=== PATIENT | male | born 1955 | race Caucasian/White ===

== ENCOUNTER 2019-06-04 21:11 | Emergency (ER) | payer MEDICAID ==
[~2019-06-04] VITALS: Ht 177.8 cm; Wt 80.0 kg
[2019-06-04 22:30] VITALS: BP 119/80
--- NOTE | 2019-06-05 03:48 | NUR ---
PT SLEEPING SOUNDLY FOR ENTIRE STAY, ROUSABLE TO VOICE, NO COMPLAINTS
--- NOTE | 2019-06-05 05:40 | NUR ---
ROUSED PT, PT ALERT AND ORIENTED, GETTING READY TO LEAVE
== END 2019-06-05 06:17 | disposition home or self-care (01) ==
LOC: ED 22:42
DX: S09.90XA Unspecified injury of head, initial encounter (principal); F10.120 Alcohol abuse with intoxication, uncomplicated; Z87.891 Personal history of nicotine dependence; Y90.0 Blood alcohol level of less than 20 mg/100 ml; X58.XXXA Exposure to other specified factors, initial encounter; Y93.89 Activity, other specified; Y92.89 Other specified places as the place of occurrence of the external cause; Y99.8 Other external cause status
CPT/HCPCS: 70450; 72125; 99284

== ENCOUNTER 2020-03-29 22:32 | Emergency (ER) | payer MEDICAID ==
[~2020-03-29] VITALS: Ht 182.9 cm; Wt 90.0 kg
--- NOTE | 2020-03-29 22:50 | NUR ---
This is a 64 y/o male arriving from [facility] after REGINA joya called an ambulance for him. Pt reports he was walking and minding his own business when he suddenly lost his feet under him and landed on his back and then his sciatica flared up!. Pt has etoh smell and reports having drank a few beers today. Pt denies any other trauma. Pt has gross neuro intact and is able to move all extremities well. Pt has no bruising and is breathing unlabored. Pt connected to spo2 monitor and NIpb. Pt is close to nurses station for close monitoring. Pt report to Josette PATIÑO. Pt etoh status informed to gas charger and made aware of fall risk.
[2020-03-30 02:15] VITALS: BP 128/77
--- NOTE | 2020-03-30 02:30 | NUR ---
Pt DCed at this time, escorted out of room and off unti by security as pt became aggressive and shouting
== END 2020-03-30 04:42 | disposition home or self-care (01) ==
LOC: ED 03-30 01:48
DX: G89.11 Acute pain due to trauma (principal); M54.5 Low back pain; F10.120 Alcohol abuse with intoxication, uncomplicated; Z87.891 Personal history of nicotine dependence; W01.0XXA Fall on same level from slipping, tripping and stumbling without subsequent striking against object, initial encounter; Y93.89 Activity, other specified; Y92.89 Other specified places as the place of occurrence of the external cause; Y99.8 Other external cause status; Y90.0 Blood alcohol level of less than 20 mg/100 ml
CPT/HCPCS: 70450; 72125; 72131; 99285

== ENCOUNTER 2020-08-18 18:15 | Emergency (ER) | payer MEDICAID ==
[~2020-08-18] VITALS: Ht 185.4 cm; Wt 100.0 kg
--- NOTE | 2020-08-18 18:22 | NUR ---
BIB [facility] FOR +ETOH AND UNABLE TO AMBULATE. [facility]: [facility] 132 PT SLURRING WORDS AND UNABLE TO UNDERSTAND. PT KEEPS SAYING "I LOVE YOU". PT REFUSED BP CUFF. PULSE OX APPLIED. PT YELLING OUT FOR UNKNOWN REASONS. WHEN PT CALMED DOWN AND STARTED SLEEPING OXYGEN DROPPED TO 75% RA. OXYGEN PLACED VIA NC WITH POSITIVE RESULTS.
--- NOTE | 2020-08-18 18:28 | NUR ---
PROVIDER AT BEDSIDE FOR ASSESSMENT. PT TO BE RECHECKED WHEN MORE SOBER.
--- NOTE | 2020-08-18 20:03 | NUR ---
PT SLEEPING ON GURNEY. RESP EVEN AND UNLABORED. CONNECTED TO PULSE OX AND OXYGEN.
--- NOTE | 2020-08-18 21:13 | NUR ---
PT SLEEPING ON GURNEY. RESP EVEN AND UNLABORED. CONNECTED TO PULSE OX AND OXYGEN.
--- NOTE | 2020-08-18 22:00 | NUR ---
PT SLEEPING ON GURNEY. RESP EVEN AND UNLABORED. CONNECTED TO PULSE OX AND OXYGEN.
--- NOTE | 2020-08-18 22:08 | NUR ---
TASK RN: ATTEMPTED TO AMBULATED PT, PT UNABLE TO DO SO AT THIS TIME WITH A STEADY GAIT, ASSISTED BACK TO [facility], PROVIDED SNACKS AND JUICE. DENIES ADDITIONAL NEEDS, BED IN LOWEST, RAILS ENGAGED, CALL LIGHT ON LAP, LIGHTS DIMMED FOR COMFORT.
--- NOTE | 2020-08-18 22:59 | NUR ---
REPORT RECIEVED FROM CHRISTINE PATIÑO
--- NOTE | 2020-08-18 23:08 | NUR ---
PT SLEEPING, RESP EVEN AND UNLABORED. NO NEEDS AT THIS TIME
--- NOTE | 2020-08-19 00:05 | NUR ---
PT RESTING ON GURNEY, NAD, APPEARS COMFORTABLE, NO CHANGE IN CONDITION. BED IN LOWEST, RAILS ENGAGED, CALL LIGHT ON LAP, WCTM. MTF
[2020-08-19 00:38] VITALS: BP 102/68
--- NOTE | 2020-08-19 00:38 | NUR ---
PT WAKES UP EASILY, ABLE TO WALK AROUND WITH STEADY GAIT.
== END 2020-08-19 01:08 | disposition home or self-care (01) ==
LOC: ED 08-19 00:43
DX: F10.220 Alcohol dependence with intoxication, uncomplicated (principal); Z72.9 Problem related to lifestyle, unspecified; Z87.891 Personal history of nicotine dependence; Y90.0 Blood alcohol level of less than 20 mg/100 ml
CPT/HCPCS: 99283

== ENCOUNTER 2020-11-06 04:36 | Emergency (ER) | payer MEDICAID ==
[~2020-11-06] VITALS: Ht 177.8 cm; Wt 78.0 kg
[2020-11-06 04:51] VITALS: BP 148/88
--- NOTE | 2020-11-06 04:55 | NUR ---
PT BIB [facility], AND PLACED IN ROOM 13. PT ON O2 SAT MONITOR, AND BP CUFF. PT GIVEN WARM BLANKETS AND TOLD TO REST. HIS EYES ARE IRRITATED BUT NO MORE TEARS NOTED, AND PT HAD EYES FLUSHED HEAVILY BY THE EMS CREW. TO SEE PT.
--- NOTE | 2020-11-06 05:45 | NUR ---
With reassessment patient resting comfortably on gurney vss on 2l nc Even/unlabored chest rise noted
--- NOTE | 2020-11-06 06:36 | NUR ---
With reassessment patient now alert/oriented Po challenged without difficulty Reviewed poc (discharge) Patient disagrees. I need to stay I have nowhere to go- escorted out by security/rpd
== END 2020-11-06 06:50 | disposition home or self-care (01) ==
LOC: ED 05:13
DX: F10.129 Alcohol abuse with intoxication, unspecified (principal); Y90.0 Blood alcohol level of less than 20 mg/100 ml
CPT/HCPCS: 99283

== ENCOUNTER 2020-11-11 09:00 | Inpatient (IN) | payer MEDICAID ==
[~2020-11-11] VITALS: Ht 177.8 cm; Wt 100.1 kg
[2020-11-11] MEDS ORDERED: ZIPRASIDONE 20 MG INJ IM ONE ×2 (09:11→09:30)
--- NOTE | 2020-11-11 09:23 | NUR ---
ana lilia from [facility] after being found with ams and agiation. pt was last seen normal last night where is was aaox4. pt was given librium before bed last night. hx of etoh drinks 1/2 gallon per day. pt agiated with arrival refusing vitals to be taken and assessment. pt observed to have full strength in all extremities. pt not following commands or answering questions. attached to all monitors. vss. nadn. pt asleep. x1 emesis observed. dr. merida to bedside for evaluation. pt medicated per emar for agiation.
[2020-11-11] MEDS ORDERED: ONDANSETRON 2MG/ML, 2ML ONE (09:44)
[2020-11-11] MEDS ORDERED: FAMOTIDINE 20 MG/2 ML ONE (09:46)
--- NOTE | 2020-11-11 10:05 | NUR ---
PT ASLEEP WITH EVEN AND UNLABORED RESPIRATRIONS. VSS. VILLALOBOS.
--- NOTE | 2020-11-11 10:06 | NUR ---
PT TO CT.
--- NOTE | 2020-11-11 10:41 | NUR ---
pt asleep with even and unlabored respirations. nadn. vss.
[2020-11-11 10:50] LABS: MEAN CORPUSCULAR HGB CONC 32.8 g/dL (33.2-36.2); MEAN PLATELET VOLUME 8.9 fL (7.4-10.4); PLATELET COUNT 302 x10^3/uL (130-400); RED BLOOD COUNT 3.66 x10^6/uL (4.38-5.82); RED CELL DISTRIBUTION WIDTH 17.5 % (9.4-14.8)
[2020-11-11 11:01] LABS: ALANINE AMINOTRANSFERASE 22 U/L (12-78); ALBUMIN 3.2 g/dL (3.4-5.0); ANION GAP 6 mmol/L (5-15); CALCIUM 8.7 mg/dL (8.5-10.1); CHLORIDE 104 mmol/L (98-107); SALICYLATE LEVEL 2.5 mg/dL (2.8-20.0)
--- NOTE | 2020-11-11 11:07 | NUR ---
pt asleep with even and unlabored respirations. nadn. vss.
[2020-11-11 11:11] LABS: ALKALINE PHOSPHATASE 92 U/L (45-117); BAND#(MANUAL) 3.74 x10^3/uL; BANDS%(MANUAL) 17 % (0-7); BASOS#(MANUAL) 0.22 x10^3/uL (0-0.1); BASOS% (MANUAL) 1 % (0-1); BILIRUBIN,TOTAL 0.7 mg/dL (0.2-1.0); LYMPH#(MANUAL) 0.66 x10^3/uL (1-3.4); LYMPHS% (MANUAL) 3 % (22-44); METAMYELOCYTES# (MANUAL) 0.44 x10^3/uL (0-0); METAMYELOCYTES% (MANUAL) 2 % (0-1); MONOS% (MANUAL) 5 % (2-9); SEG#(MANUAL) 15.84 x10^3/uL (1.8-6.8); SEGS% (MANUAL) 72 % (42-75); TOTAL PROTEIN 8.2 g/dL (6.4-8.2)
[2020-11-11 11:12] LABS: <PLATELET ESTIMATE> ADEQUATE; <PLT MORPHOLOGY> NORMAL PLT MORPH; ANISOCYTOSIS 1+
[2020-11-11 11:31] LABS: FREE T4 (FREE THYROXINE) 0.89 ng/dL (0.76-1.46)
[2020-11-11 11:54] LABS: MICROSCOPIC NOT IND
[2020-11-11 12:10] LABS: AMPHETAMINE SCREEN, URINE Negative (Negative); BARBITURATE SCREEN, URINE Negative (Negative); BENZODIAZEPINE SCREEN, URINE Positive (Negative); CANNABINOID SCREEN, URINE Positive (Negative); COCAINE SCREEN, URINE Negative (Negative); METHADONE SCREEN, URINE Negative (Negative); OPIATE SCREEN, URINE Negative (Negative)
[2020-11-11] MEDS ORDERED: MIDAZOLAM 1 MG/ML, 2ML ONE (12:20)
[2020-11-11] MEDS ORDERED: LIDOCAINE-MPF 1%, 5ML ONE ×2 (12:20)
[2020-11-11] MEDS ORDERED: LIDOCAINE 1%, 10ML INFIL ONE (12:30)
[2020-11-11] MEDS ORDERED: CEFTRIAXONE 2 GM in DEXTROSE 5% 50 ML IVPB ONE (12:30)
[2020-11-11] MEDS ORDERED: MIDAZOLAM 1 MG/ML, 2ML IVPush PRN (12:30)
--- NOTE | 2020-11-11 12:42 | NUR ---
pt medicated per emar for bedside lp. lp preformed by dr. merida. ian. halima. sample walked down. pt asleep with even and unlabored respirations.
--- NOTE | 2020-11-11 13:10 | NUR ---
RN SPOKE WITH DR. SHEPARD REGARDING SEPSIS CRITRIA AND A BOLUS. PER DR. SHEPARD PT DOES NOT REQUIRE IV BOLUS.
[2020-11-11 13:27] LABS: TOTAL PROTEIN,CSF 626 mg/dL (15-45)
[2020-11-11] MEDS ORDERED: [UNRECOGNIZED DRUG - REMARK] MC SCH (13:30)
[2020-11-11] MEDS ORDERED: SODIUM CHLORIDE 0.9% 1,000ML IVBOLUS ONE (13:30)
[2020-11-11] MEDS ORDERED: VANCOMYCIN PER PHARMACY MC ONE (13:30)
[2020-11-11] MEDS ORDERED: SODIUM CHLORIDE 0.9% 1,000ML IVBOLUS PRN (13:30)
[2020-11-11 13:31] LABS: GLUCOSE, CSF < 1 mg/dL (40-80)
[2020-11-11] MEDS ORDERED: PHARMACOKINETIC MONITORING MC ONE (14:00)
[2020-11-11] MEDS ORDERED: VANCOMYCIN 2,000 MG in SODIUM CHLORIDE 0.9% 500 ML IV ONE (14:00)
[2020-11-11] MEDS ORDERED: PLEASE ENTER MEASURED WEIGHT MC SCH (14:00)
[2020-11-11] MEDS ORDERED: SODIUM CHLORIDE 0.9% 1,000ML IV ONE (14:00)
[2020-11-11] MEDS ORDERED: PHARMACOKINETIC CONSULTATION MC ONE ×2 (14:00→15:30)
--- NOTE | 2020-11-11 14:09 | NUR ---
REPORT CALLED TO SHANNON PATIÑO. PT ASLEEP WITH EVEN AND UNLABORED RESPRIATIONS. VSS. VILLALOBOS.
--- NOTE | 2020-11-11 14:13 | NUR ---
THIS RN REQUEST EMMANUEL FROM PHARMACY.
--- NOTE | 2020-11-11 14:20 | NUR ---
POSTIVE BLOOD CULTURES REPORTED TO DR. ANNE.
[2020-11-11 14:38] VITALS: BP 138/79
[2020-11-11] MEDS ORDERED: LORazepam 2 MG/ML, 1ML IV PRN ×3 (15:00)
[2020-11-11] MEDS ORDERED: ONDANSETRON 2MG/ML, 2ML IVPush PRN (15:00)
[2020-11-11] MEDS ORDERED: POLYETHYLENE GLYCOL 17 GM PACKET PO PRN (15:00)
[2020-11-11] MEDS ORDERED: LORazepam 0.5MG TABLET PO PRN (15:00)
[2020-11-11] MEDS ORDERED: VANCOMYCIN PER PHARMACY MC PRN (15:00)
[2020-11-11] MEDS ORDERED: hydrALAzine 20 MG/ML, 1ML IVPush PRN (15:00)
[2020-11-11] MEDS ORDERED: DOCUSATE 100 MG CAPSULE PO PRN (15:00)
[2020-11-11] MEDS ORDERED: PROMETHAZINE 25 MG/ML, 1ML IM PRN (15:00)
[2020-11-11] MEDS ORDERED: LORazepam 1MG TABLET PO PRN ×4 (15:00)
[2020-11-11] MEDS ORDERED: KETOROLAC 30 MG/1 ML IV PRN (15:00)
[2020-11-11] MEDS ORDERED: ONDANSETRON ODT 4 MG PO PRN (15:00)
[2020-11-11] MEDS ORDERED: BISACODYL 10 MG SUPP PR PRN (15:00)
[2020-11-11] MEDS ORDERED: PHARMACOKINETIC MONITORING MC PRN (15:30)
[2020-11-11] MEDS: ENOXAPARIN 40 MG/0.4 ML SQ SCH (17:13)
[2020-11-11 18:43] VITALS: BP 142/87
[2020-11-11] MEDS: LORazepam 2 MG/ML, 1ML IV PRN (22:18)
[2020-11-11] MEDS: D5%-0.9% NACL 1,000 ML IV SCH (23:15)
[2020-11-11] MEDS: CEFTRIAXONE 2 GM in DEXTROSE 5% 50 ML IVPB SCH (23:26)
[2020-11-12 01:15] VITALS: BP 124/79
[2020-11-12] MEDS: LORazepam 2 MG/ML, 1ML IV PRN ×3 (02:00→06:30)
[2020-11-12] MEDS: VANCOMYCIN 1,600 MG in SODIUM CHLORIDE 0.9% 250 ML IV SCH ×2 (02:51→14:58)
[2020-11-12 05:27] LABS: ALBUMIN 2.5 g/dL (3.4-5.0); CALCIUM 8.3 mg/dL (8.5-10.1); CHLORIDE 107 mmol/L (98-107); MEAN CORPUSCULAR HEMOGLOBIN 29.8 pg (27.5-34.5); MEAN CORPUSCULAR HGB CONC 32.7 g/dL (33.2-36.2); MEAN PLATELET VOLUME 9.6 fL (7.4-10.4); PLATELET COUNT 233 x10^3/uL (130-400); RED BLOOD COUNT 3.23 x10^6/uL (4.38-5.82); RED CELL DISTRIBUTION WIDTH 17.7 % (9.4-14.8)
[2020-11-12 05:35] LABS: ALANINE AMINOTRANSFERASE 19 U/L (12-78); ALKALINE PHOSPHATASE 74 U/L (45-117); ANION GAP 8 mmol/L (5-15); BILIRUBIN,TOTAL 0.4 mg/dL (0.2-1.0); CHOLESTEROL, TOTAL 117 mg/dL (140-239); CREATININE 0.88 mg/dL (0.7-1.3); HDL CHOL % 33 % (26-37); HDL CHOLESTEROL (DIRECT) 39 mg/dL (40-60); LDL CHOLESTEROL,CALCULATED 55 mg/dL (54-169); LDL/HDL RATIO 1.4 (0.5-3.0); TOTAL PROTEIN 7.2 g/dL (6.4-8.2); TRIGLYCERIDES 116 mg/dL (50-200); VLDL CHOLESTEROL 23 mg/dL (0-25)
[2020-11-12 05:58] LABS: BAND#(MANUAL) 5.13 x10^3/uL; BANDS%(MANUAL) 18 % (0-7); METAMYELOCYTES# (MANUAL) 0.57 x10^3/uL (0-0); METAMYELOCYTES% (MANUAL) 2 % (0-1); MONOS#(MANUAL) 0.86 x10^3/uL (0.3-2.7); MONOS% (MANUAL) 3 % (2-9)
[2020-11-12 05:59] LABS: ANISOCYTOSIS 1+; LYMPH#(MANUAL) 0.57 x10^3/uL (1-3.4); LYMPHS% (MANUAL) 2 % (22-44); SEGS% (MANUAL) 75 % (42-75)
[2020-11-12 06:00] LABS: <PLATELET ESTIMATE> ADEQUATE; LARGE PLATELETS 1+
[2020-11-12 07:30] VITALS: BP 124/78
[2020-11-12] MEDS: D5%-0.9% NACL 1,000 ML IV SCH (07:49)
[2020-11-12] MEDS: SODIUM CHLORIDE 0.9% 1,000 ML IV SCH ×2 (08:00→21:05)
[2020-11-12] MEDS ORDERED: THIAMINE 100 MG in SODIUM CHLORIDE 0.9% 50 ML IV SCH (09:00)
[2020-11-12] MEDS ORDERED: MAGNESIUM SULFATE 1 GM, THIAMINE 200 MG, FOLIC ACID 1 MG, MVI ADULT 10 ML in SODIUM CHL... IV SCH (09:30)
[2020-11-12] MEDS ORDERED: CEFTRIAXONE 2 GM in DEXTROSE 5% 50 ML IVPB SCH (12:00)
[2020-11-12] MEDS: CEFTRIAXONE 2 GM in DEXTROSE 5% 50 ML IVPB SCH (12:54)
[2020-11-12 14:16] VITALS: BP 123/86
[2020-11-12] MEDS: ENOXAPARIN 40 MG/0.4 ML SQ SCH (17:48)
[2020-11-12 20:25] VITALS: BP 136/87
[2020-11-13 00:26] VITALS: BP 108/71
[2020-11-13] MEDS: CEFTRIAXONE 2 GM in DEXTROSE 5% 50 ML IVPB SCH ×2 (00:54→12:55)
[2020-11-13 02:40] LABS: MEAN CORPUSCULAR HEMOGLOBIN 29.7 pg (27.5-34.5); MEAN CORPUSCULAR HGB CONC 32.4 g/dL (33.2-36.2); MEAN PLATELET VOLUME 8.8 fL (7.4-10.4); PLATELET COUNT 246 x10^3/uL (130-400); RED BLOOD COUNT 3.28 x10^6/uL (4.38-5.82); RED CELL DISTRIBUTION WIDTH 17.3 % (9.4-14.8)
[2020-11-13] MEDS: VANCOMYCIN 1,600 MG in SODIUM CHLORIDE 0.9% 250 ML IV SCH (02:42)
[2020-11-13 02:49] LABS: ALANINE AMINOTRANSFERASE 17 U/L (12-78); ALBUMIN 2.2 g/dL (3.4-5.0); ANION GAP 7 mmol/L (5-15); CALCIUM 8.3 mg/dL (8.5-10.1); CHLORIDE 114 mmol/L (98-107); CREATININE 0.64 mg/dL (0.7-1.3)
[2020-11-13 02:51] LABS: ALKALINE PHOSPHATASE 66 U/L (45-117); BILIRUBIN,TOTAL 0.3 mg/dL (0.2-1.0); TOTAL PROTEIN 6.9 g/dL (6.4-8.2)
[2020-11-13 02:59] LABS: <PLATELET ESTIMATE> ADEQUATE; ANISOCYTOSIS 1+; BAND#(MANUAL) 2.59 x10^3/uL; BANDS%(MANUAL) 10 % (0-7); LARGE PLATELETS 1+; LYMPH#(MANUAL) 0.26 x10^3/uL (1-3.4); LYMPHS% (MANUAL) 1 % (22-44); MONOS#(MANUAL) 1.04 x10^3/uL (0.3-2.7); MONOS% (MANUAL) 4 % (2-9); POLYCHROMASIA 1+; SEG#(MANUAL) 22.02 x10^3/uL (1.8-6.8); SEGS% (MANUAL) 85 % (42-75)
[2020-11-13] MEDS: SODIUM CHLORIDE 0.9% 1,000 ML IV SCH (06:06)
[2020-11-13 07:44] VITALS: BP 154/89
[2020-11-13] MEDS ORDERED: POTASSIUM CHLORIDE 20 MEQ, MAGNESIUM SULFATE 1 GM, MVI ADULT 10 ML, THIAMINE 200 MG, FO... IV SCH (08:30)
[2020-11-13] MEDS: VANCOMYCIN 1,300 MG in SODIUM CHLORIDE 0.9% 250 ML IV SCH ×2 (09:34→18:24)
[2020-11-13] MEDS: LORazepam 2 MG/ML, 1ML IV PRN ×4 (11:17→20:55)
[2020-11-13 13:50] VITALS: BP 148/63
[2020-11-13] MEDS: ENOXAPARIN 40 MG/0.4 ML SQ SCH (18:23)
[2020-11-13 20:00] VITALS: BP 149/89
[2020-11-14] MEDS: CEFTRIAXONE 2 GM in DEXTROSE 5% 50 ML IVPB SCH ×2 (00:26→12:25)
[2020-11-14] MEDS: LORazepam 2 MG/ML, 1ML IV PRN ×2 (00:50→07:23)
[2020-11-14 00:51] VITALS: BP 138/70
[2020-11-14] MEDS ORDERED: LORazepam 2 MG/ML, 1ML IVPush ONE (01:30)
[2020-11-14] MEDS: VANCOMYCIN 1,300 MG in SODIUM CHLORIDE 0.9% 250 ML IV SCH (01:49)
[2020-11-14 04:19] VITALS: BP 134/88
[2020-11-14 05:38] LABS: BASOPHILS % (AUTO) 0 % (0-1); EOSINOPHILS % (AUTO) 0 % (1-7); LYMPHOCYTES % (AUTO) 9 % (22-44); MEAN CORPUSCULAR HEMOGLOBIN 29.7 pg (27.5-34.5); MEAN CORPUSCULAR HGB CONC 32.9 g/dL (33.2-36.2); MONOCYTES % (AUTO) 7 % (2-9); NEUTROPHILS % (AUTO) 84 % (42-75); PLATELET COUNT 282 x10^3/uL (130-400); RED BLOOD COUNT 3.34 x10^6/uL (4.38-5.82); RED CELL DISTRIBUTION WIDTH 17.6 % (9.4-14.8)
[2020-11-14 05:49] LABS: ANION GAP 11 mmol/L (5-15); CALCIUM 8.3 mg/dL (8.5-10.1); CHLORIDE 113 mmol/L (98-107); CREATININE 0.66 mg/dL (0.7-1.3)
[2020-11-14 08:48] VITALS: BP 162/95
[2020-11-14] MEDS: MVI ADULT IV SCH (09:30)
[2020-11-14] MEDS: POTASSIUM CHLORIDE IV SCH (09:30)
[2020-11-14] MEDS: THIAMINE IV SCH (09:30)
[2020-11-14] MEDS: MAGNESIUM SULFATE IV SCH (09:30)
[2020-11-14] MEDS: [UNRECOGNIZED DRUG - OTHER] IV SCH (09:30)
[2020-11-14 12:06] VITALS: BP 134/78
[2020-11-14] MEDS: ENOXAPARIN 40 MG/0.4 ML SQ SCH (17:00)
[2020-11-14 18:50] VITALS: BP 155/84
[2020-11-15] MEDS: CEFTRIAXONE 2 GM in DEXTROSE 5% 50 ML IVPB SCH ×2 (00:17→13:00)
[2020-11-15] MEDS: LORazepam 2 MG/ML, 1ML IV PRN (00:17)
[2020-11-15 01:14] VITALS: BP 149/89
[2020-11-15 06:01] LABS: BASOPHILS % (AUTO) 1 % (0-1); EOSINOPHILS % (AUTO) 0 % (1-7); LYMPHOCYTES % (AUTO) 21 % (22-44); MEAN CORPUSCULAR HGB CONC 33.3 g/dL (33.2-36.2); MEAN PLATELET VOLUME 8.5 fL (7.4-10.4); MONOCYTES % (AUTO) 13 % (2-9); NEUTROPHILS % (AUTO) 64 % (42-75); PLATELET COUNT 308 x10^3/uL (130-400); RED BLOOD COUNT 3.36 x10^6/uL (4.38-5.82)
[2020-11-15 06:11] LABS: ANION GAP 9 mmol/L (5-15); CALCIUM 8.3 mg/dL (8.5-10.1); CHLORIDE 111 mmol/L (98-107); CREATININE 0.55 mg/dL (0.7-1.3)
[2020-11-15 06:15] VITALS: BP 175/90
[2020-11-15] MEDS: MVI ADULT IV SCH ×2 (10:01→21:30)
[2020-11-15] MEDS: [UNRECOGNIZED DRUG - OTHER] IV SCH ×2 (10:01→21:30)
[2020-11-15] MEDS: THIAMINE IV SCH ×2 (10:01→21:30)
[2020-11-15] MEDS: POTASSIUM CHLORIDE IV SCH ×2 (10:01→21:30)
[2020-11-15] MEDS: MAGNESIUM SULFATE IV SCH ×2 (10:01→21:30)
[2020-11-15 13:27] VITALS: BP 165/91
[2020-11-15] MEDS: ENOXAPARIN 40 MG/0.4 ML SQ SCH (16:46)
[2020-11-15 18:33] VITALS: BP 158/87
[2020-11-16 00:10] VITALS: BP 144/83
[2020-11-16] MEDS: CEFTRIAXONE 2 GM in DEXTROSE 5% 50 ML IVPB SCH ×2 (00:26→12:38)
[2020-11-16 08:05] VITALS: BP 146/81
[2020-11-16 08:47] LABS: ANION GAP 11 mmol/L (5-15); CALCIUM 8.4 mg/dL (8.5-10.1); CHLORIDE 110 mmol/L (98-107); CREATININE 0.53 mg/dL (0.7-1.3)
[2020-11-16] MEDS: THIAMINE IV SCH (09:02)
[2020-11-16] MEDS: MVI ADULT IV SCH (09:02)
[2020-11-16] MEDS: MAGNESIUM SULFATE IV SCH (09:02)
[2020-11-16] MEDS: [UNRECOGNIZED DRUG - OTHER] IV SCH (09:02)
[2020-11-16] MEDS: POTASSIUM CHLORIDE IV SCH (09:02)
[2020-11-16] MEDS ORDERED: OMNIPAQUE 350 MG/ML, 75ML BOTTLE ONE (10:01)
[2020-11-16 13:02] VITALS: BP 156/90
[2020-11-16] MEDS ORDERED: LORazepam 0.5MG TABLET PO PRN (16:30)
[2020-11-16] MEDS: POTASSIUM CHLORIDE 20 MEQ TAB.ER.PRT PO SCH (17:10)
[2020-11-16] MEDS: ENOXAPARIN 40 MG/0.4 ML SQ SCH (17:11)
[2020-11-16 18:21] VITALS: BP 169/97
[2020-11-17] MEDS: CEFTRIAXONE 2 GM in DEXTROSE 5% 50 ML IVPB SCH ×2 (00:11→13:44)
[2020-11-17 01:00] VITALS: BP 152/82
[2020-11-17 07:48] VITALS: BP 131/78
[2020-11-17] MEDS: POTASSIUM CHLORIDE 20 MEQ TAB.ER.PRT PO SCH ×3 (09:41→17:25)
[2020-11-17] MEDS ORDERED: MORPHINE SULFATE 4 MG/ML, 1ML IVPush PRN (10:30)
[2020-11-17 12:54] VITALS: BP 94/54
[2020-11-17 16:18] VITALS: BP 129/84
[2020-11-17 17:18] VITALS: BP 117/77
[2020-11-17] MEDS: ENOXAPARIN 40 MG/0.4 ML SQ SCH (17:26)
[2020-11-17 20:03] VITALS: BP 146/81
[2020-11-17] MEDS: ACETAMINOPHEN 325 MG TABLET PO PRN (21:14)
[2020-11-18 00:27] VITALS: BP 129/68
[2020-11-18] MEDS: CEFTRIAXONE 2 GM in DEXTROSE 5% 50 ML IVPB SCH ×2 (00:47→12:18)
[2020-11-18 05:28] LABS: ANION GAP 7 mmol/L (5-15); CALCIUM 8.4 mg/dL (8.5-10.1); CHLORIDE 110 mmol/L (98-107); CREATININE 0.57 mg/dL (0.7-1.3)
[2020-11-18 07:53] VITALS: BP 123/75
[2020-11-18] MEDS: POTASSIUM CHLORIDE 20 MEQ TAB.ER.PRT PO SCH ×3 (08:25→17:19)
[2020-11-18] MEDS: ACETAMINOPHEN 325 MG TABLET PO PRN ×2 (08:25→20:30)
[2020-11-18 13:09] VITALS: BP 114/65
[2020-11-18] MEDS: ENOXAPARIN 40 MG/0.4 ML SQ SCH (17:21)
[2020-11-18] MEDS ORDERED: GADOTERATE 10 MMOL/20ML SYR ONE (17:53)
[2020-11-18 20:01] VITALS: BP 127/83
[2020-11-18] MEDS ORDERED: ENOXAPARIN 60 MG/0.6 ML SQ ONE (21:30)
[2020-11-18] MEDS: FLUTICASONE NASAL SPRAY 16GM NAS SCH (22:29)
[2020-11-19] MEDS: CEFTRIAXONE 2 GM in DEXTROSE 5% 50 ML IVPB SCH ×2 (00:47→11:58)
[2020-11-19 00:51] VITALS: BP 120/71
[2020-11-19 07:56] VITALS: BP 144/83
[2020-11-19] MEDS: POTASSIUM CHLORIDE 20 MEQ TAB.ER.PRT PO SCH ×3 (08:21→17:13)
[2020-11-19] MEDS: FLUTICASONE NASAL SPRAY 16GM NAS SCH ×2 (08:21→20:19)
[2020-11-19] MEDS: ACETAMINOPHEN 325 MG TABLET PO PRN ×2 (08:21→20:19)
[2020-11-19] MEDS: ENOXAPARIN 100 MG/ML SQ SCH ×2 (08:26→20:19)
[2020-11-19 13:12] VITALS: BP 109/59
[2020-11-19 19:12] VITALS: BP 137/77
[2020-11-20] MEDS: CEFTRIAXONE 2 GM in DEXTROSE 5% 50 ML IVPB SCH ×2 (00:11→14:02)
[2020-11-20 01:21] VITALS: BP 125/73
[2020-11-20] MEDS: ACETAMINOPHEN 325 MG TABLET PO PRN ×2 (06:02→20:34)
[2020-11-20 09:29] VITALS: BP 138/86
[2020-11-20] MEDS: POTASSIUM CHLORIDE 20 MEQ TAB.ER.PRT PO SCH ×3 (09:33→17:45)
[2020-11-20] MEDS: ENOXAPARIN 100 MG/ML SQ SCH ×2 (09:34→20:34)
[2020-11-20] MEDS: FLUTICASONE NASAL SPRAY 16GM NAS SCH ×2 (09:34→20:34)
[2020-11-20 14:08] VITALS: BP 119/75
[2020-11-20 18:23] VITALS: BP 130/77
[2020-11-21 00:09] VITALS: BP 132/79
[2020-11-21] MEDS: CEFTRIAXONE 2 GM in DEXTROSE 5% 50 ML IVPB SCH ×2 (01:59→13:29)
[2020-11-21 05:52] LABS: BASOPHILS % (AUTO) 3 % (0-1); EOSINOPHILS % (AUTO) 4 % (1-7); LYMPHOCYTES % (AUTO) 26 % (22-44); MEAN CORPUSCULAR HEMOGLOBIN 30.4 pg (27.5-34.5); MEAN CORPUSCULAR HGB CONC 33.5 g/dL (33.2-36.2); MEAN PLATELET VOLUME 8.7 fL (7.4-10.4); MONOCYTES % (AUTO) 7 % (2-9); NEUTROPHILS % (AUTO) 61 % (42-75); PLATELET COUNT 519 x10^3/uL (130-400); RED BLOOD COUNT 3.69 x10^6/uL (4.38-5.82); RED CELL DISTRIBUTION WIDTH 17.9 % (9.4-14.8)
[2020-11-21 05:54] LABS: HCT (SEDRATE) 33.9 % (39.2-51.8)
[2020-11-21 06:04] LABS: ALANINE AMINOTRANSFERASE 20 U/L (12-78); ANION GAP 4 mmol/L (5-15); C-REACTIVE PROTEIN, QUANT 0.56 mg/dL (0.02-0.49); CALCIUM 9.4 mg/dL (8.5-10.1); CHLORIDE 105 mmol/L (98-107); CREATININE 0.72 mg/dL (0.7-1.3)
[2020-11-21 06:05] LABS: ALKALINE PHOSPHATASE 65 U/L (45-117); BILIRUBIN,TOTAL 0.2 mg/dL (0.2-1.0); TOTAL PROTEIN 7.7 g/dL (6.4-8.2)
[2020-11-21 06:41] VITALS: BP 124/86
[2020-11-21] MEDS: FLUTICASONE NASAL SPRAY 16GM NAS SCH ×2 (09:00→20:24)
[2020-11-21] MEDS: POTASSIUM CHLORIDE 20 MEQ TAB.ER.PRT PO SCH ×3 (09:21→20:24)
[2020-11-21] MEDS: ENOXAPARIN 100 MG/ML SQ SCH ×2 (09:22→20:24)
[2020-11-21 12:40] VITALS: BP 131/80
[2020-11-21 18:13] VITALS: BP 118/75
[2020-11-21] MEDS: ACETAMINOPHEN 325 MG TABLET PO PRN (20:23)
[2020-11-22 00:36] VITALS: BP 113/72
[2020-11-22] MEDS: CEFTRIAXONE 2 GM in DEXTROSE 5% 50 ML IVPB SCH ×2 (01:40→14:16)
[2020-11-22 08:10] VITALS: BP 96/60
[2020-11-22] MEDS: ENOXAPARIN 100 MG/ML SQ SCH ×2 (09:00→19:54)
[2020-11-22] MEDS: POTASSIUM CHLORIDE 20 MEQ TAB.ER.PRT PO SCH ×2 (09:01→19:54)
[2020-11-22] MEDS: ACETAMINOPHEN 325 MG TABLET PO PRN (09:01)
[2020-11-22] MEDS: FLUTICASONE NASAL SPRAY 16GM NAS SCH ×2 (09:11→19:54)
[2020-11-22 12:58] VITALS: BP 107/68
[2020-11-22 19:17] VITALS: BP 103/68
[2020-11-23 00:49] VITALS: BP 117/69
[2020-11-23] MEDS: CEFTRIAXONE 2 GM in DEXTROSE 5% 50 ML IVPB SCH ×2 (02:23→15:16)
[2020-11-23 05:47] LABS: ANION GAP 5 mmol/L (5-15); CALCIUM 9.3 mg/dL (8.5-10.1); CHLORIDE 105 mmol/L (98-107)
[2020-11-23 05:48] LABS: CREATININE 0.65 mg/dL (0.7-1.3)
[2020-11-23] MEDS: POTASSIUM CHLORIDE 20 MEQ TAB.ER.PRT PO SCH ×2 (08:21→20:28)
[2020-11-23] MEDS: ENOXAPARIN 100 MG/ML SQ SCH (08:21)
[2020-11-23] MEDS: ACETAMINOPHEN 325 MG TABLET PO PRN ×2 (08:26→15:17)
[2020-11-23] MEDS: FLUTICASONE NASAL SPRAY 16GM NAS SCH ×2 (08:26→20:28)
[2020-11-23 10:34] VITALS: BP 100/71
[2020-11-23 14:54] VITALS: BP 115/77
[2020-11-23 19:38] VITALS: BP 111/74
[2020-11-23] MEDS: ENOXAPARIN 80 MG/0.8 ML SQ SCH (20:29)
[2020-11-24 01:02] VITALS: BP 108/71
[2020-11-24] MEDS: CEFTRIAXONE 2 GM in DEXTROSE 5% 50 ML IVPB SCH ×2 (02:53→14:22)
[2020-11-24 05:49] LABS: BASOPHILS % (AUTO) 1 % (0-1); EOSINOPHILS % (AUTO) 3 % (1-7); LYMPHOCYTES % (AUTO) 30 % (22-44); MEAN CORPUSCULAR HEMOGLOBIN 30.2 pg (27.5-34.5); MEAN PLATELET VOLUME 8.7 fL (7.4-10.4); MONOCYTES % (AUTO) 10 % (2-9); NEUTROPHILS % (AUTO) 57 % (42-75); PLATELET COUNT 517 x10^3/uL (130-400); RED BLOOD COUNT 3.61 x10^6/uL (4.38-5.82); RED CELL DISTRIBUTION WIDTH 17.9 % (9.4-14.8)
[2020-11-24 05:54] LABS: CHLORIDE 105 mmol/L (98-107)
[2020-11-24 06:00] LABS: ALANINE AMINOTRANSFERASE 24 U/L (12-78); ALBUMIN 3.2 g/dL (3.4-5.0); ALKALINE PHOSPHATASE 63 U/L (45-117); ANION GAP 4 mmol/L (5-15); BILIRUBIN,TOTAL 0.2 mg/dL (0.2-1.0); CALCIUM 9.9 mg/dL (8.5-10.1); CREATININE 0.71 mg/dL (0.7-1.3); TOTAL PROTEIN 7.7 g/dL (6.4-8.2)
[2020-11-24 07:21] VITALS: BP 114/79
[2020-11-24] MEDS: ENOXAPARIN 80 MG/0.8 ML SQ SCH ×2 (08:03→20:11)
[2020-11-24] MEDS: POTASSIUM CHLORIDE 20 MEQ TAB.ER.PRT PO SCH ×2 (08:03→20:11)
[2020-11-24] MEDS: FLUTICASONE NASAL SPRAY 16GM NAS SCH ×2 (09:00→20:11)
[2020-11-24 13:10] VITALS: BP 122/74
[2020-11-24 19:38] VITALS: BP 126/73
[2020-11-25] MEDS: CEFTRIAXONE 2 GM in DEXTROSE 5% 50 ML IVPB SCH (01:49)
[2020-11-25 01:54] VITALS: BP 100/65
[2020-11-25 08:12] VITALS: BP 114/69
[2020-11-25] MEDS: FLUTICASONE NASAL SPRAY 16GM NAS SCH ×2 (08:28→20:22)
[2020-11-25] MEDS: ENOXAPARIN 80 MG/0.8 ML SQ SCH ×2 (08:28→20:23)
[2020-11-25] MEDS: POTASSIUM CHLORIDE 20 MEQ TAB.ER.PRT PO SCH ×2 (08:28→20:23)
[2020-11-25 14:39] VITALS: BP 113/75
[2020-11-25 20:19] VITALS: BP 114/86
[2020-11-25] MEDS: ACETAMINOPHEN 325 MG TABLET PO PRN (20:28)
[2020-11-26 01:43] VITALS: BP 137/75
[2020-11-26 08:07] VITALS: BP 134/71
[2020-11-26] MEDS: POTASSIUM CHLORIDE 20 MEQ TAB.ER.PRT PO SCH ×2 (08:13→19:45)
[2020-11-26] MEDS: FLUTICASONE NASAL SPRAY 16GM NAS SCH ×2 (09:32→19:45)
[2020-11-26] MEDS: ENOXAPARIN 80 MG/0.8 ML SQ SCH (09:33)
[2020-11-26] MEDS: CEFTRIAXONE 2 GM in DEXTROSE 5% 50 ML IVPB SCH (13:50)
[2020-11-26 14:30] VITALS: BP 118/77
[2020-11-26] MEDS: ENOXAPARIN 100 MG/ML SQ SCH (19:47)
[2020-11-26 20:17] VITALS: BP 103/68
[2020-11-27] MEDS: CEFTRIAXONE 2 GM in DEXTROSE 5% 50 ML IVPB SCH ×2 (01:11→13:34)
[2020-11-27 01:13] VITALS: BP 115/78
[2020-11-27 07:49] VITALS: BP 116/77
[2020-11-27] MEDS: ENOXAPARIN 100 MG/ML SQ SCH ×2 (08:59→20:47)
[2020-11-27] MEDS: FLUTICASONE NASAL SPRAY 16GM NAS SCH ×2 (08:59→20:44)
[2020-11-27] MEDS: POTASSIUM CHLORIDE 20 MEQ TAB.ER.PRT PO SCH ×2 (09:00→20:44)
[2020-11-27 15:17] VITALS: BP 137/73
[2020-11-27 20:41] VITALS: BP 114/78
[2020-11-27] MEDS: ACETAMINOPHEN 325 MG TABLET PO PRN (20:44)
[2020-11-28 01:34] VITALS: BP 114/65
[2020-11-28] MEDS: CEFTRIAXONE 2 GM in DEXTROSE 5% 50 ML IVPB SCH ×2 (01:46→13:41)
[2020-11-28 05:30] LABS: HCT (SEDRATE) 31.9 % (39.2-51.8)
[2020-11-28 05:32] LABS: BASOPHILS % (AUTO) 1 % (0-1); EOSINOPHILS % (AUTO) 5 % (1-7); LYMPHOCYTES % (AUTO) 41 % (22-44); MEAN CORPUSCULAR HEMOGLOBIN 29.9 pg (27.5-34.5); MEAN CORPUSCULAR HGB CONC 32.9 g/dL (33.2-36.2); MEAN PLATELET VOLUME 8.8 fL (7.4-10.4); MONOCYTES % (AUTO) 12 % (2-9); NEUTROPHILS % (AUTO) 40 % (42-75); PLATELET COUNT 457 x10^3/uL (130-400); RED BLOOD COUNT 3.51 x10^6/uL (4.38-5.82)
[2020-11-28 05:42] LABS: ALANINE AMINOTRANSFERASE 22 U/L (12-78); ANION GAP 6 mmol/L (5-15); C-REACTIVE PROTEIN, QUANT 0.19 mg/dL (0.02-0.49); CHLORIDE 110 mmol/L (98-107); CREATININE 0.69 mg/dL (0.7-1.3)
[2020-11-28 05:45] LABS: ALKALINE PHOSPHATASE 65 U/L (45-117); BILIRUBIN,TOTAL 0.2 mg/dL (0.2-1.0); TOTAL PROTEIN 7.2 g/dL (6.4-8.2)
[2020-11-28 07:45] VITALS: BP 145/73
[2020-11-28] MEDS: FLUTICASONE NASAL SPRAY 16GM NAS SCH ×2 (09:45→19:56)
[2020-11-28] MEDS: POTASSIUM CHLORIDE 20 MEQ TAB.ER.PRT PO SCH ×2 (09:46→19:56)
[2020-11-28] MEDS: ENOXAPARIN 100 MG/ML SQ SCH ×2 (09:46→19:56)
[2020-11-28] MEDS: ACETAMINOPHEN 325 MG TABLET PO PRN (10:27)
[2020-11-28 14:25] VITALS: BP 103/72
[2020-11-28 19:40] VITALS: BP 127/72
[2020-11-29] MEDS: CEFTRIAXONE 2 GM in DEXTROSE 5% 50 ML IVPB SCH ×2 (01:05→13:41)
[2020-11-29 01:30] VITALS: BP 120/77
[2020-11-29] MEDS: DIPHENHYDRAMINE 25 MG CAPSULE PO PRN ×3 (08:38→22:48)
[2020-11-29] MEDS: POTASSIUM CHLORIDE 20 MEQ TAB.ER.PRT PO SCH ×2 (08:38→20:01)
[2020-11-29] MEDS: ENOXAPARIN 100 MG/ML SQ SCH ×2 (08:38→20:01)
[2020-11-29] MEDS: FLUTICASONE NASAL SPRAY 16GM NAS SCH ×2 (08:40→20:01)
[2020-11-29 08:47] VITALS: BP 105/70
[2020-11-29 15:05] VITALS: BP 111/74
[2020-11-29 19:52] VITALS: BP 102/65
[2020-11-29] MEDS: ACETAMINOPHEN 325 MG TABLET PO PRN (20:04)
[2020-11-30 01:00] VITALS: BP 115/74
[2020-11-30] MEDS: CEFTRIAXONE 2 GM in DEXTROSE 5% 50 ML IVPB SCH ×2 (01:01→14:10)
[2020-11-30 07:47] VITALS: BP 109/75
[2020-11-30] MEDS: POTASSIUM CHLORIDE 20 MEQ TAB.ER.PRT PO SCH ×2 (10:37→20:01)
[2020-11-30] MEDS: FLUTICASONE NASAL SPRAY 16GM NAS SCH ×2 (10:37→20:01)
[2020-11-30] MEDS: ENOXAPARIN 100 MG/ML SQ SCH ×2 (10:37→21:35)
[2020-11-30 13:20] VITALS: BP 123/74
[2020-11-30 19:49] VITALS: BP 116/80
[2020-11-30] MEDS: ACETAMINOPHEN 325 MG TABLET PO PRN (20:01)
[2020-12-01] MEDS: CEFTRIAXONE 2 GM in DEXTROSE 5% 50 ML IVPB SCH ×2 (01:50→13:43)
[2020-12-01 02:01] VITALS: BP 123/85
[2020-12-01 03:02] LABS: CREATININE 0.81 mg/dL (0.7-1.3)
[2020-12-01 06:57] VITALS: BP 114/77
[2020-12-01] MEDS: POTASSIUM CHLORIDE 20 MEQ TAB.ER.PRT PO SCH ×2 (10:20→21:19)
[2020-12-01] MEDS: ENOXAPARIN 100 MG/ML SQ SCH ×2 (10:20→21:20)
[2020-12-01] MEDS: FLUTICASONE NASAL SPRAY 16GM NAS SCH ×2 (10:26→21:19)
[2020-12-01 12:27] VITALS: BP 101/65
[2020-12-01 20:15] VITALS: BP 114/73
[2020-12-01] MEDS: ACETAMINOPHEN 325 MG TABLET PO PRN (20:16)
[2020-12-02 01:22] VITALS: BP 114/74
[2020-12-02] MEDS: CEFTRIAXONE 2 GM in DEXTROSE 5% 50 ML IVPB SCH ×2 (01:25→13:55)
[2020-12-02 07:14] VITALS: BP 107/61
[2020-12-02] MEDS: ENOXAPARIN 100 MG/ML SQ SCH ×2 (09:05→22:29)
[2020-12-02] MEDS: ACETAMINOPHEN 325 MG TABLET PO PRN ×2 (09:05→22:29)
[2020-12-02] MEDS: POTASSIUM CHLORIDE 20 MEQ TAB.ER.PRT PO SCH ×2 (09:05→22:29)
[2020-12-02] MEDS: FLUTICASONE NASAL SPRAY 16GM NAS SCH ×2 (09:05→22:29)
[2020-12-02 14:07] VITALS: BP 113/69
[2020-12-02 20:59] VITALS: BP 109/87
[2020-12-03] MEDS: CEFTRIAXONE 2 GM in DEXTROSE 5% 50 ML IVPB SCH ×2 (01:27→13:58)
[2020-12-03 02:30] VITALS: BP 108/72
[2020-12-03 07:49] VITALS: BP 123/76
[2020-12-03] MEDS: POTASSIUM CHLORIDE 20 MEQ TAB.ER.PRT PO SCH ×2 (09:28→21:46)
[2020-12-03] MEDS: ENOXAPARIN 100 MG/ML SQ SCH ×2 (09:28→21:46)
[2020-12-03] MEDS: FLUTICASONE NASAL SPRAY 16GM NAS SCH ×2 (09:33→21:46)
[2020-12-03] MEDS: ACETAMINOPHEN 325 MG TABLET PO PRN (09:42)
[2020-12-03 13:30] VITALS: BP 114/73
[2020-12-03 18:43] VITALS: BP 118/82
[2020-12-04] MEDS: CEFTRIAXONE 2 GM in DEXTROSE 5% 50 ML IVPB SCH ×2 (01:17→14:53)
[2020-12-04 02:03] VITALS: BP 117/77
[2020-12-04 05:07] LABS: CREATININE 0.67 mg/dL (0.7-1.3)
[2020-12-04 07:55] VITALS: BP 121/74
[2020-12-04] MEDS: POTASSIUM CHLORIDE 20 MEQ TAB.ER.PRT PO SCH ×2 (09:27→20:45)
[2020-12-04] MEDS: ENOXAPARIN 100 MG/ML SQ SCH ×2 (09:27→20:45)
[2020-12-04] MEDS: FLUTICASONE NASAL SPRAY 16GM NAS SCH ×2 (09:38→20:45)
[2020-12-04] MEDS: ACETAMINOPHEN 325 MG TABLET PO PRN ×2 (09:38→20:53)
[2020-12-04 13:11] VITALS: BP 112/78
[2020-12-04 20:35] VITALS: BP 147/77
[2020-12-05 01:30] VITALS: BP 128/74
[2020-12-05] MEDS: CEFTRIAXONE 2 GM in DEXTROSE 5% 50 ML IVPB SCH ×2 (01:38→13:35)
[2020-12-05 05:35] LABS: MEAN CORPUSCULAR HEMOGLOBIN 29.7 pg (27.5-34.5); MEAN CORPUSCULAR HGB CONC 32.8 g/dL (33.2-36.2); MEAN PLATELET VOLUME 9.5 fL (7.4-10.4); PLATELET COUNT 268 x10^3/uL (130-400); RED BLOOD COUNT 3.54 x10^6/uL (4.38-5.82); RED CELL DISTRIBUTION WIDTH 17.7 % (9.4-14.8)
[2020-12-05 05:41] LABS: CHLORIDE 110 mmol/L (98-107)
[2020-12-05 05:57] LABS: ALANINE AMINOTRANSFERASE 33 U/L (12-78); ALBUMIN 3.4 g/dL (3.4-5.0); ALKALINE PHOSPHATASE 66 U/L (45-117); ANION GAP 9 mmol/L (5-15); BILIRUBIN,TOTAL 0.1 mg/dL (0.2-1.0); C-REACTIVE PROTEIN, QUANT 0.18 mg/dL (0.02-0.49); CALCIUM 9.5 mg/dL (8.5-10.1); CREATININE 0.68 mg/dL (0.7-1.3); TOTAL PROTEIN 7.3 g/dL (6.4-8.2)
[2020-12-05 06:13] LABS: BASOS#(MANUAL) 0.08 x10^3/uL (0-0.1); BASOS% (MANUAL) 1 % (0-1); EOS% (MANUAL) 11 % (1-7); LYMPH#(MANUAL) 2.87 x10^3/uL (1-3.4); LYMPHS% (MANUAL) 35 % (22-44); MONOS#(MANUAL) 0.57 x10^3/uL (0.3-2.7); MONOS% (MANUAL) 7 % (2-9); SEG#(MANUAL) 3.77 x10^3/uL (1.8-6.8); SEGS% (MANUAL) 46 % (42-75)
[2020-12-05 06:14] LABS: <PLATELET ESTIMATE> ADEQUATE; <PLT MORPHOLOGY> NORMAL PLT MORPH; ANISOCYTOSIS 1+
[2020-12-05 06:56] VITALS: BP 130/85
[2020-12-05] MEDS: POTASSIUM CHLORIDE 20 MEQ TAB.ER.PRT PO SCH ×2 (09:23→19:59)
[2020-12-05] MEDS: ACETAMINOPHEN 325 MG TABLET PO PRN ×2 (09:23→19:59)
[2020-12-05] MEDS: FLUTICASONE NASAL SPRAY 16GM NAS SCH ×2 (09:23→19:59)
[2020-12-05] MEDS: ENOXAPARIN 100 MG/ML SQ SCH ×2 (09:23→20:00)
[2020-12-05 12:59] VITALS: BP 125/54
[2020-12-05 18:16] VITALS: BP 123/80
[2020-12-06 00:07] VITALS: BP 138/89
[2020-12-06] MEDS: CEFTRIAXONE 2 GM in DEXTROSE 5% 50 ML IVPB SCH ×2 (01:06→13:31)
[2020-12-06 06:56] VITALS: BP 99/60
[2020-12-06] MEDS: FLUTICASONE NASAL SPRAY 16GM NAS SCH ×2 (08:48→20:09)
[2020-12-06] MEDS: POTASSIUM CHLORIDE 20 MEQ TAB.ER.PRT PO SCH ×2 (08:48→20:09)
[2020-12-06] MEDS: ENOXAPARIN 100 MG/ML SQ SCH ×2 (08:50→20:09)
[2020-12-06 14:25] VITALS: BP 102/62
[2020-12-06] MEDS: ACETAMINOPHEN 325 MG TABLET PO PRN (17:24)
[2020-12-06 20:07] VITALS: BP 125/87
[2020-12-07] MEDS: CEFTRIAXONE 2 GM in DEXTROSE 5% 50 ML IVPB SCH ×2 (01:03→13:41)
[2020-12-07 01:53] VITALS: BP 133/67
[2020-12-07 02:07] VITALS: BP 147/79
[2020-12-07 06:48] LABS: CREATININE 0.74 mg/dL (0.7-1.3)
[2020-12-07 07:35] VITALS: BP 107/72
[2020-12-07] MEDS: FLUTICASONE NASAL SPRAY 16GM NAS SCH ×2 (08:37→21:26)
[2020-12-07] MEDS: POTASSIUM CHLORIDE 20 MEQ TAB.ER.PRT PO SCH ×2 (08:37→21:23)
[2020-12-07] MEDS: ACETAMINOPHEN 325 MG TABLET PO PRN (08:37)
[2020-12-07] MEDS: ENOXAPARIN 100 MG/ML SQ SCH ×2 (08:39→21:24)
[2020-12-07 13:56] VITALS: BP 113/72
[2020-12-07] MEDS: GABAPENTIN 300 MG CAPSULE PO SCH ×2 (15:18→21:23)
[2020-12-07 18:45] VITALS: BP 147/99
[2020-12-08] MEDS: CEFTRIAXONE 2 GM in DEXTROSE 5% 50 ML IVPB SCH ×2 (00:57→13:44)
[2020-12-08 01:31] VITALS: BP 107/78
[2020-12-08 07:14] VITALS: BP 103/68
[2020-12-08] MEDS: GABAPENTIN 300 MG CAPSULE PO SCH ×3 (09:01→21:38)
[2020-12-08] MEDS: ENOXAPARIN 100 MG/ML SQ SCH ×2 (09:01→21:38)
[2020-12-08] MEDS: FLUTICASONE NASAL SPRAY 16GM NAS SCH ×2 (09:01→21:38)
[2020-12-08] MEDS: POTASSIUM CHLORIDE 20 MEQ TAB.ER.PRT PO SCH ×2 (09:01→21:38)
[2020-12-08] MEDS: ACETAMINOPHEN 325 MG TABLET PO PRN (09:07)
[2020-12-08 13:50] VITALS: BP 116/78
[2020-12-08 20:16] VITALS: BP 118/83
[2020-12-09] MEDS: CEFTRIAXONE 2 GM in DEXTROSE 5% 50 ML IVPB SCH ×2 (01:24→13:45)
[2020-12-09 01:59] VITALS: BP 103/67
[2020-12-09] MEDS: GABAPENTIN 300 MG CAPSULE PO SCH (08:55)
[2020-12-09] MEDS: POTASSIUM CHLORIDE 20 MEQ TAB.ER.PRT PO SCH ×2 (08:55→20:31)
[2020-12-09] MEDS: ENOXAPARIN 100 MG/ML SQ SCH ×2 (08:55→20:31)
[2020-12-09] MEDS: ACETAMINOPHEN 325 MG TABLET PO PRN (08:55)
[2020-12-09] MEDS: FLUTICASONE NASAL SPRAY 16GM NAS SCH ×2 (08:55→20:31)
[2020-12-09 09:47] VITALS: BP 122/74
[2020-12-09 13:16] VITALS: BP 110/62
[2020-12-09] MEDS: GABAPENTIN 400 MG CAPSULE PO SCH ×2 (16:21→20:31)
[2020-12-09 19:31] VITALS: BP 117/70
[2020-12-10 01:13] VITALS: BP 115/72
[2020-12-10] MEDS: CEFTRIAXONE 2 GM in DEXTROSE 5% 50 ML IVPB SCH ×2 (01:15→13:39)
[2020-12-10 06:00] LABS: CREATININE 0.66 mg/dL (0.7-1.3)
[2020-12-10 07:43] VITALS: BP 107/76
[2020-12-10] MEDS: ENOXAPARIN 100 MG/ML SQ SCH ×2 (09:22→21:32)
[2020-12-10] MEDS: GABAPENTIN 400 MG CAPSULE PO SCH ×3 (09:23→21:29)
[2020-12-10] MEDS: POTASSIUM CHLORIDE 20 MEQ TAB.ER.PRT PO SCH ×2 (09:23→21:29)
[2020-12-10] MEDS: FLUTICASONE NASAL SPRAY 16GM NAS SCH ×2 (09:23→21:29)
[2020-12-10 13:07] VITALS: BP 106/68
[2020-12-10 21:25] VITALS: BP 131/73
[2020-12-11] MEDS: CEFTRIAXONE 2 GM in DEXTROSE 5% 50 ML IVPB SCH ×2 (00:54→12:59)
[2020-12-11 00:56] VITALS: BP 96/57
[2020-12-11] MEDS: FLUTICASONE NASAL SPRAY 16GM NAS SCH ×2 (08:09→20:53)
[2020-12-11] MEDS: ENOXAPARIN 100 MG/ML SQ SCH ×2 (08:09→20:57)
[2020-12-11] MEDS: POTASSIUM CHLORIDE 20 MEQ TAB.ER.PRT PO SCH ×2 (08:09→20:53)
[2020-12-11] MEDS: GABAPENTIN 400 MG CAPSULE PO SCH ×3 (08:10→20:54)
[2020-12-11 08:57] VITALS: BP 134/72
[2020-12-11 14:58] VITALS: BP 134/62
[2020-12-11 19:18] VITALS: BP 126/82
[2020-12-12 00:20] VITALS: BP 110/74
[2020-12-12] MEDS: CEFTRIAXONE 2 GM in DEXTROSE 5% 50 ML IVPB SCH ×2 (01:39→13:09)
[2020-12-12 05:15] LABS: HCT (SEDRATE) 30.8 % (39.2-51.8)
[2020-12-12 05:16] LABS: BASOPHILS % (AUTO) 1 % (0-1); EOSINOPHILS % (AUTO) 7 % (1-7); LYMPHOCYTES % (AUTO) 35 % (22-44); MEAN CORPUSCULAR HEMOGLOBIN 30.1 pg (27.5-34.5); MEAN CORPUSCULAR HGB CONC 33.3 g/dL (33.2-36.2); MEAN PLATELET VOLUME 8.6 fL (7.4-10.4); MONOCYTES % (AUTO) 12 % (2-9); NEUTROPHILS % (AUTO) 46 % (42-75); PLATELET COUNT 231 x10^3/uL (130-400); RED CELL DISTRIBUTION WIDTH 17.8 % (9.4-14.8)
[2020-12-12 05:27] LABS: ALBUMIN 2.9 g/dL (3.4-5.0); ANION GAP 5 mmol/L (5-15); CALCIUM 8.8 mg/dL (8.5-10.1); CHLORIDE 110 mmol/L (98-107)
[2020-12-12 05:31] LABS: ALANINE AMINOTRANSFERASE 30 U/L (12-78); ALKALINE PHOSPHATASE 57 U/L (45-117); BILIRUBIN,TOTAL 0.1 mg/dL (0.2-1.0); C-REACTIVE PROTEIN, QUANT 0.25 mg/dL (0.02-0.49); CREATININE 0.64 mg/dL (0.7-1.3); TOTAL PROTEIN 6.8 g/dL (6.4-8.2)
[2020-12-12 06:40] VITALS: BP 118/78
[2020-12-12] MEDS: GABAPENTIN 400 MG CAPSULE PO SCH ×3 (08:04→21:21)
[2020-12-12] MEDS: POTASSIUM CHLORIDE 20 MEQ TAB.ER.PRT PO SCH ×2 (08:04→21:20)
[2020-12-12] MEDS: ENOXAPARIN 100 MG/ML SQ SCH ×2 (08:04→21:21)
[2020-12-12] MEDS: FLUTICASONE NASAL SPRAY 16GM NAS SCH ×2 (08:04→21:21)
[2020-12-12 14:17] VITALS: BP 115/78
[2020-12-12 20:12] VITALS: BP 118/75
[2020-12-13 00:10] VITALS: BP 141/89
[2020-12-13] MEDS: CEFTRIAXONE 2 GM in DEXTROSE 5% 50 ML IVPB SCH ×2 (01:21→14:24)
[2020-12-13 04:51] LABS: CREATININE 0.71 mg/dL (0.7-1.3)
[2020-12-13 08:22] VITALS: BP 110/7
[2020-12-13] MEDS: POTASSIUM CHLORIDE 20 MEQ TAB.ER.PRT PO SCH ×2 (10:18→20:24)
[2020-12-13] MEDS: ENOXAPARIN 100 MG/ML SQ SCH ×2 (10:18→20:24)
[2020-12-13] MEDS: GABAPENTIN 400 MG CAPSULE PO SCH ×3 (10:18→20:24)
[2020-12-13] MEDS: FLUTICASONE NASAL SPRAY 16GM NAS SCH ×2 (10:18→20:24)
[2020-12-13 14:17] VITALS: BP 106/68
[2020-12-13 20:34] VITALS: BP 120/77
[2020-12-14 00:38] VITALS: BP 128/82
[2020-12-14] MEDS: CEFTRIAXONE 2 GM in DEXTROSE 5% 50 ML IVPB SCH ×2 (01:25→14:17)
[2020-12-14 06:37] VITALS: BP 140/70
[2020-12-14] MEDS: POTASSIUM CHLORIDE 20 MEQ TAB.ER.PRT PO SCH ×2 (08:27→20:47)
[2020-12-14] MEDS: ENOXAPARIN 100 MG/ML SQ SCH ×2 (08:27→20:47)
[2020-12-14] MEDS: GABAPENTIN 400 MG CAPSULE PO SCH ×3 (08:27→20:47)
[2020-12-14] MEDS: FLUTICASONE NASAL SPRAY 16GM NAS SCH ×2 (08:27→20:47)
[2020-12-14 12:33] VITALS: BP 100/64
[2020-12-14 20:13] VITALS: BP 119/71
[2020-12-15 00:40] VITALS: BP 127/80
[2020-12-15] MEDS: CEFTRIAXONE 2 GM in DEXTROSE 5% 50 ML IVPB SCH ×2 (01:40→13:49)
[2020-12-15 07:14] VITALS: BP 97/64
[2020-12-15] MEDS: GABAPENTIN 400 MG CAPSULE PO SCH ×3 (08:18→20:30)
[2020-12-15] MEDS: POTASSIUM CHLORIDE 20 MEQ TAB.ER.PRT PO SCH ×2 (08:19→20:30)
[2020-12-15] MEDS: FLUTICASONE NASAL SPRAY 16GM NAS SCH ×2 (08:19→20:30)
[2020-12-15] MEDS: ENOXAPARIN 100 MG/ML SQ SCH ×2 (08:19→20:30)
[2020-12-15 12:07] VITALS: BP 116/75
[2020-12-15 19:21] VITALS: BP 121/76
[2020-12-16 00:38] VITALS: BP 115/73
[2020-12-16] MEDS: CEFTRIAXONE 2 GM in DEXTROSE 5% 50 ML IVPB SCH ×2 (01:50→13:32)
[2020-12-16 04:38] LABS: CREATININE 0.69 mg/dL (0.7-1.3)
[2020-12-16 07:54] VITALS: BP 103/73
[2020-12-16] MEDS: FLUTICASONE NASAL SPRAY 16GM NAS SCH ×2 (07:58→20:05)
[2020-12-16] MEDS: GABAPENTIN 400 MG CAPSULE PO SCH ×3 (07:58→20:05)
[2020-12-16] MEDS: ENOXAPARIN 100 MG/ML SQ SCH ×2 (07:58→20:05)
[2020-12-16] MEDS: POTASSIUM CHLORIDE 20 MEQ TAB.ER.PRT PO SCH ×2 (07:58→20:05)
[2020-12-16 13:45] VITALS: BP 112/67
[2020-12-16 20:10] VITALS: BP 120/79
[2020-12-17 01:52] VITALS: BP 110/66
[2020-12-17] MEDS: CEFTRIAXONE 2 GM in DEXTROSE 5% 50 ML IVPB SCH ×2 (01:53→13:15)
[2020-12-17 07:32] VITALS: BP 104/70
[2020-12-17] MEDS: POTASSIUM CHLORIDE 20 MEQ TAB.ER.PRT PO SCH ×2 (08:20→21:53)
[2020-12-17] MEDS: FLUTICASONE NASAL SPRAY 16GM NAS SCH ×2 (08:20→21:53)
[2020-12-17] MEDS: GABAPENTIN 400 MG CAPSULE PO SCH ×3 (08:20→21:53)
[2020-12-17] MEDS: ENOXAPARIN 100 MG/ML SQ SCH ×2 (08:21→21:53)
[2020-12-17 12:23] VITALS: BP 105/62
[2020-12-17 12:27] VITALS: BP 120/72
[2020-12-17 20:02] VITALS: BP 105/64
[2020-12-17 21:24] VITALS: BP 103/67
[2020-12-18 01:14] VITALS: BP 100/71
[2020-12-18] MEDS: CEFTRIAXONE 2 GM in DEXTROSE 5% 50 ML IVPB SCH ×2 (01:18→14:18)
[2020-12-18 07:29] VITALS: BP 105/73
[2020-12-18] MEDS: FLUTICASONE NASAL SPRAY 16GM NAS SCH ×2 (09:18→20:59)
[2020-12-18] MEDS: GABAPENTIN 400 MG CAPSULE PO SCH ×3 (09:18→20:56)
[2020-12-18] MEDS: POTASSIUM CHLORIDE 20 MEQ TAB.ER.PRT PO SCH ×2 (09:18→20:56)
[2020-12-18] MEDS: ENOXAPARIN 100 MG/ML SQ SCH ×2 (09:18→20:57)
[2020-12-18 14:12] VITALS: BP 131/75
[2020-12-18 19:30] VITALS: BP 135/82
[2020-12-19 00:33] VITALS: BP 120/75
[2020-12-19] MEDS: CEFTRIAXONE 2 GM in DEXTROSE 5% 50 ML IVPB SCH ×2 (01:27→12:48)
[2020-12-19 04:53] LABS: BASOPHILS % (AUTO) 2 % (0-1); EOSINOPHILS % (AUTO) 6 % (1-7); LYMPHOCYTES % (AUTO) 32 % (22-44); MEAN CORPUSCULAR HEMOGLOBIN 30.3 pg (27.5-34.5); MEAN CORPUSCULAR HGB CONC 33.6 g/dL (33.2-36.2); MONOCYTES % (AUTO) 13 % (2-9); NEUTROPHILS % (AUTO) 48 % (42-75); PLATELET COUNT 295 x10^3/uL (130-400); RED CELL DISTRIBUTION WIDTH 17.6 % (9.4-14.8)
[2020-12-19 04:54] LABS: HCT (SEDRATE) 30.8 % (39.2-51.8)
[2020-12-19 04:58] LABS: ALANINE AMINOTRANSFERASE 33 U/L (12-78); ALBUMIN 3.3 g/dL (3.4-5.0); ANION GAP 6 mmol/L (5-15); C-REACTIVE PROTEIN, QUANT 0.36 mg/dL (0.02-0.49); CALCIUM 9.1 mg/dL (8.5-10.1); CHLORIDE 109 mmol/L (98-107); CREATININE 0.73 mg/dL (0.7-1.3)
[2020-12-19 05:01] LABS: ALKALINE PHOSPHATASE 63 U/L (45-117); BILIRUBIN,TOTAL 0.2 mg/dL (0.2-1.0); TOTAL PROTEIN 7.3 g/dL (6.4-8.2)
[2020-12-19 08:04] VITALS: BP 94/68
[2020-12-19] MEDS: ENOXAPARIN 100 MG/ML SQ SCH ×2 (08:48→19:55)
[2020-12-19] MEDS: POTASSIUM CHLORIDE 20 MEQ TAB.ER.PRT PO SCH ×2 (08:48→19:55)
[2020-12-19] MEDS: FLUTICASONE NASAL SPRAY 16GM NAS SCH ×2 (08:48→19:55)
[2020-12-19] MEDS: GABAPENTIN 400 MG CAPSULE PO SCH ×3 (08:48→19:55)
[2020-12-19 12:26] VITALS: BP 96/64
[2020-12-19 18:27] VITALS: BP 106/72
[2020-12-20 00:56] VITALS: BP 117/75
[2020-12-20] MEDS: CEFTRIAXONE 2 GM in DEXTROSE 5% 50 ML IVPB SCH ×2 (01:22→13:32)
[2020-12-20 06:20] VITALS: BP 113/75
[2020-12-20] MEDS: ENOXAPARIN 100 MG/ML SQ SCH (08:44)
[2020-12-20] MEDS: POTASSIUM CHLORIDE 20 MEQ TAB.ER.PRT PO SCH (08:44)
[2020-12-20] MEDS: GABAPENTIN 400 MG CAPSULE PO SCH ×2 (08:44→16:11)
[2020-12-20] MEDS: FLUTICASONE NASAL SPRAY 16GM NAS SCH (08:45)
[2020-12-20] MEDS ORDERED: PNEUMOC 13-VALENT VACC, 0.5 ML IM-VACC ONE (09:00)
[2020-12-20 13:03] VITALS: BP 135/75
[2020-12-20] MEDS ORDERED: NICOTINE 14MG/24 HR PATCH.TD24 TD SCH (14:00)
[2020-12-20] MEDS ORDERED: CEPH500T PO (14:43)
[2020-12-20] MEDS ORDERED: ENOX100S4 SQ (14:45)
== END 2020-12-20 17:33 | disposition home or self-care (01) | DRG 720 ==
LOC: ED 09:16 → EDIP 13:25 → 4WST 14:35 → 3N 11-17 17:01
PROVIDERS: ADMIT Internal Medicine; ATTEND Hospitalist
PROC: 009U3ZX Drainage of Spinal Canal, Percutaneous Approach, Diagnostic (ICD-10-PCS; principal; 2020-11-11)
PROC: 0T9B70Z Drainage of Bladder with Drainage Device, Via Natural or Artificial Opening (ICD-10-PCS; 2020-11-11)
PROC: 02HV33Z Insertion of Infusion Device into Superior Vena Cava, Percutaneous Approach (ICD-10-PCS; 2020-11-23)
PROC: B5181ZA Fluoroscopy of Superior Vena Cava using Low Osmolar Contrast, Guidance (ICD-10-PCS; 2020-11-23)
PROC: B548ZZA Ultrasonography of Superior Vena Cava, Guidance (ICD-10-PCS; 2020-11-23)
DX: A40.3 Sepsis due to Streptococcus pneumoniae (principal); J96.01 Acute respiratory failure with hypoxia; G08 Intracranial and intraspinal phlebitis and thrombophlebitis; G00.1 Pneumococcal meningitis; R65.20 Severe sepsis without septic shock; G03.8 Meningitis due to other specified causes; G92 Toxic encephalopathy; H70.002 Acute mastoiditis without complications, left ear; E87.6 Hypokalemia; F10.239 Alcohol dependence with withdrawal, unspecified; F17.200 Nicotine dependence, unspecified, uncomplicated; H66.92 Otitis media, unspecified, left ear; B18.2 Chronic viral hepatitis C; D64.9 Anemia, unspecified; H91.90 Unspecified hearing loss, unspecified ear; F32.9 Major depressive disorder, single episode, unspecified; R94.6 Abnormal results of thyroid function studies; J32.0 Chronic maxillary sinusitis; J32.2 Chronic ethmoidal sinusitis; K44.9 Diaphragmatic hernia without obstruction or gangrene; M54.30 Sciatica, unspecified side; F12.10 Cannabis abuse, uncomplicated; Z59.0 Homelessness; Z78.1 Physical restraint status; Z86.61 Personal history of infections of the central nervous system; Z86.72 Personal history of thrombophlebitis
CPT/HCPCS: 36415; 36600; 84145; 89051; 96365; 96372; 96375; 99291; J3490; J7042; 36573; 62328; 70450; 70487; 70553; 71045; 80048; 80053; 80061; 80202; 80299; 80307; 80320; 80329; 81003; 82140; 82565; 82607; 82784; 82787; 82803; 82945; 83036; 83605; 83735; 84100; 84157; 84439; 84443; 84481; 85025; 85651; 86140; 86803; 87040; 87070; 87077; 87181; 87205; 87521; 87522; 93306; G0378; J0696; J1650; J2250; J3370; J3411; J3475; J3480; J3486; Q9967; A9575; C1751; G0009; G0480; J0360; J2060; J7030; J7040; J7050; Q0163

== ENCOUNTER 2021-01-06 19:13 | Emergency (ER) | payer MEDICAID ==
[~2021-01-06] VITALS: Ht 182.9 cm; Wt 95.0 kg
[~2021-01-06 19:13] MED LIST: CEPH500T PO; ENOX100S4 SQ
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
[2021-01-06 20:01] LABS: BASOPHILS % (AUTO) 2 % (0-1); EOSINOPHILS % (AUTO) 4 % (1-7); LYMPHOCYTES % (AUTO) 51 % (22-44); MEAN CORPUSCULAR HEMOGLOBIN 29.7 pg (27.5-34.5); MEAN CORPUSCULAR HGB CONC 32.5 g/dL (33.2-36.2); MEAN PLATELET VOLUME 8.2 fL (7.4-10.4); MONOCYTES % (AUTO) 8 % (2-9); NEUTROPHILS % (AUTO) 35 % (42-75); PLATELET COUNT 247 x10^3/uL (130-400); RED BLOOD COUNT 3.95 x10^6/uL (4.38-5.82); RED CELL DISTRIBUTION WIDTH 17.5 % (9.4-14.8)
[2021-01-06 20:12] LABS: ALANINE AMINOTRANSFERASE 25 U/L (12-78); ALBUMIN 3.9 g/dL (3.4-5.0); ANION GAP 9 mmol/L (5-15); CALCIUM 8.6 mg/dL (8.5-10.1); CHLORIDE 110 mmol/L (98-107); CREATININE 1.07 mg/dL (0.7-1.3)
--- NOTE | 2021-01-06 20:12 | NUR ---
PT STATES HE IS NOT ABLE TO PROVIDE A URINE SAMPLE AT THIS TIME. URINAL AT BEDSIDE.
--- NOTE | 2021-01-06 20:15 | NUR ---
PT GOING TO CT.
[2021-01-06 20:17] LABS: ALKALINE PHOSPHATASE 94 U/L (45-117); BILIRUBIN,TOTAL 0.4 mg/dL (0.2-1.0); TOTAL PROTEIN 8.3 g/dL (6.4-8.2)
[2021-01-06] MEDS ORDERED: POTASSIUM CHLORIDE 20 MEQ TAB.ER.PRT PO ONE (20:30)
--- NOTE | 2021-01-06 20:40 | NUR ---
PT BACK FROM CT. PT MOVED FROM RME09 TO ROOM 40. REPORT GIVEN TO HERMILO PATIÑO. ALL PT BELONGINGS TRANSFERRED WITH PT. PT CONNECTED TO MONITORING. CALL LIGHT IN REACH.
--- NOTE | 2021-01-06 20:48 | NUR ---
REPORT RECIEVED FROM KAYLYN KING. PT RESTING IN [facility], ALL MONITORS IN PLACE. NO S/S OF DISTRESS. VSS
[2021-01-06] MEDS ORDERED: POTASSIUM CHLORIDE 20 MEQ TAB.ER.PRT ONE (21:13)
--- NOTE | 2021-01-06 21:51 | NUR ---
PT STILL VERY INTOXICATED, WILL NOT WAKE UP FOR POTASSIUM PILL AT THIS TIME. WILL TRY AGAIN LATER
[2021-01-06 23:29] VITALS: BP 101/64
--- NOTE | 2021-01-06 23:44 | NUR ---
PT AWAKE, ALERT AND OREINTED. MOVES EXTREMITIES BASLINE, STEADY AMBULATING.
--- NOTE | 2021-01-07 00:24 | NUR ---
THIS RN WENT IN TO DISCHARGE PT. PT WAS REFUSING TO GET OUT OF [facility]. THIS RN EXPLAINED THAT HE IS MEDICALLY CLEARED AND NEEDS TO GET READY. PT STARTED YELLING AND CALLING THIS RN A PUNK. SECURITY CALLED AND P ESCORTED OUT WITH PAPERWORK AND BUS PASS. PT WAS AGGRESSIVE TOWARDS SECURITY WELL.
== END 2021-01-07 00:27 | disposition home or self-care (01) ==
LOC: ED 20:30
DX: S09.90XA Unspecified injury of head, initial encounter (principal); F10.220 Alcohol dependence with intoxication, uncomplicated; M47.812 Spondylosis without myelopathy or radiculopathy, cervical region; E87.6 Hypokalemia; F17.210 Nicotine dependence, cigarettes, uncomplicated; Y04.8XXA Assault by other bodily force, initial encounter; Y93.89 Activity, other specified; Y92.89 Other specified places as the place of occurrence of the external cause; Y99.8 Other external cause status; Y90.0 Blood alcohol level of less than 20 mg/100 ml
CPT/HCPCS: 36415; 70450; 72125; 80053; 80320; 85025; 99285; 99406; G0480